=== PATIENT | male | born 1980 | race Caucasian/White ===

== ENCOUNTER 2016-06-07 21:22 | Emergency (ER) | payer MEDICAID, OTHER ==
[2016-06-07] MEDS ORDERED: IOPAMIDOL 370 (76%) 100 ML VIAL IV ONE (21:23)
[2016-06-07] MEDS ORDERED: ONDANSETRON 4 MG/2ML 2 ML VIAL ONE (22:34)
[2016-06-07] MEDS ORDERED: NALBUPHINE HCL 10 MG/ML AMP ONE (22:35)
[2016-06-07 22:46] LABS: ABSOLUTE NEUTROPHIL COUNT 5.8 K/mm3 (1.8-7.7); BASO % 0.3 % (0.2-1.0); EOS # 0.1 (0.0-0.5); EOS % 1.2 % (0.9-2.9); HEMOGLOBIN 13.8 gm/l (14.0-18.0); IMM NEUT% 0.2 % (0-1); LYMPH # 3.6 (1.0-4.8); LYMPH % 34.7 % (15-45); MEAN CELL VOLUME 92.3 fl (80.0-94.0); MEAN CORPUSCULAR HEMOGLOBIN 30.3 pg (27.0-31.0); MEAN CORPUSCULAR HGB CONC 32.9 g/dl (33.0-37.0); MEAN PLATELET VOLUME 8.8 fl (7.4-10.4); MONO # 0.9 (0.0-0.8); MONO % 8.2 % (4-12); NEUT % 55.4 % (43-75); PLATELET COUNT 265 K/mm3 (130-400); RED CELL DISTRIBUTION WIDTH 12.5 % (11.5-14.5)
[2016-06-07 23:25] LABS: ALB/GLOB RATIO 1.1 (>1.0); ALBUMIN 3.3 gm/dL (3.5-5.7); CALCIUM 8.5 mg/dL (8.6-10.3)
[2016-06-07 23:31] LABS: PH,URINE 6.5 (5.0-8.0); SPECIFIC GRAVITY 1.015 (1.001-1.030); URINE BILIRUBIN NEGATIVE (NEGATIVE); URINE BLOOD NEGATIVE (NEGATIVE); URINE GLUCOSE (UA) NEGATIVE (NEGATIVE); URINE LEUKOCYTE ESTERASE NEGATIVE (NEGATIVE); URINE NITRITE NEGATIVE (NEGATIVE); URINE PROTEIN NEGATIVE (NEGATIVE); URINE UROBILINOGEN NORMAL (0-1 mg/dl)
[2016-06-07 23:33] LABS: URINE APPEARANCE CLEAR; URINE COLOR LIGHT YELLOW
[2016-06-08] MEDS ORDERED: NALBUPHINE HCL 10 MG/ML AMP ONE (00:09)
[2016-06-08] MEDS ORDERED: NICOTINE 21 MG PATCH 1 EACH TD ONE (00:27)
--- NOTE | 2016-06-08 07:26 | RAD ---
HAND-RIGHT 3 VIEWS HISTORY: Fall. COMPARISONS: None. FINDINGS: 3 views of the right hand were performed demonstrating normal bony mineralization. The visualized osseous structures appear to remain intact. The alignment is normal. The joint spaces are well-maintained. No focal soft tissue abnormalities are seen. IMPRESSION: 1. Negative views of the right hand.
--- NOTE | 2016-06-08 07:30 | CT ---
C-SPINE W/O CON History: Fall off a ladder. Procedure: 1 mm axial images were obtained through the cervical spine from the base of the skull to T1 with stacked reconstructed 2 mm images photographed in the axial, coronal and sagittal planes. Comparison: None. Findings: The osseous structures are intact without evidence of a discrete fracture. The alignment is normal. No significant subluxation is visualized. The facets align appropriately without evidence of a perched or jumped facet. The spinous processes appear to be intact. No prevertebral soft tissue swelling is observed. The pre-dens space is not widened. The odontoid process is intact. The thyroid gland and the visualized lung apices appear to be normal. There is prominent reversal of the normal cervical lordosis. Spondylosis changes are suggested at C5-6. Impression: 1. Cervical spondylosis changes at C5-6 with reversal of the normal cervical lordosis. 2. No discrete fracture or significant subluxation observed. The findings were called to the emergency room at 2332 hours, 06/07/2016, by [facility].
--- NOTE | 2016-06-08 07:39 | CT ---
Exam Type: ABD/PELVIS W/ CON, CHEST W/ CON Date and Time: 06/07/2016 10:23 PM Clinical information: Fall from a ladder. Comparison: None Procedure: Imaging device: [employer] Aquilion [address] scanner 1 mm axial images were obtained through the chest, abdomen and pelvis. Stacked reconstructed 3, 4 and 5 mm images were photographed in the axial coronal and sagittal planes. No oral contrast was utilized for this examination. 100 ml of Isovue-[id number] was injected intravenously. Exam: with intravenous contrast. FINDINGS: Chest: Thyroid Gland: The thyroid gland appears of normal size with no discrete masses visualized. Mediastinum: A few scattered mediastinal lymph nodes are observed with a pretracheal lymph node observed on image 29 demonstrating a size of 1.7 x 0.8 cm. Hilar structures: The hilar structures are normal with no mass or enlarged adenopathy observed. Heart: The heart size is appropriate. Aorta: The ascending and descending aorta and the aortic arch are unremarkable. No significant asymmetric enlargement is observed. Pericardium: No discrete pericardial abnormalities or evidence of significant fluid is observed. Esophagus: The visualized portions of the esophagus are unremarkable. Central airways: Unremarkable. Lung parenchyma: No gross consolidation, effusion or pneumothorax is present. No focal pulmonary masses are observed. Bibasilar atelectasis is evident. Abdomen/Pelvis: Liver: the liver is homogeneous with no discrete abnormality visualized. No definite findings of biliary dilatation are observed. Spleen: The spleen is homogeneous and does not appear to be enlarged. Gallbladder: Normal without enlargement or evidence of adjacent inflammatory changes. Pancreas: Normal without enlargement or evidence of adjacent inflammatory changes. Adrenal glands: Normal without enlargement or evidence of adjacent inflammatory changes. Abdominal aorta: The aorta is of normal caliber and appears to be without significant atherosclerotic disease. Kidneys: The kidneys appear to be symmetric in size with no perinephric inflammatory changes are identified. No current findings of hydronephrosis are seen. Bowel structures: The visualized bowel is of normal caliber without evidence of dilatation or obstruction. No free fluid or mesenteric inflammatory changes are identified. Appendix: The appendix is well-visualized and appears to be of normal caliber. No periappendiceal inflammatory changes or CT findings of appendicitis are currently observed. Bladder: Mildly distended. Hernia: A fat filled umbilical hernia is noted. Adenopathy: A few scattered mildly prominent retroperitoneal lymph nodes are visualized. Osseous structures: No discrete osseous abnormalities are identified. No discrete fracture is visualized. Pelvic structures: No discrete pelvic abnormalities are visualized in this examination. IMPRESSION: 1. No large organ injury or evidence of a discrete fracture is visualized. 2. Mild the prominent mediastinal and retroperitoneal abdominal adenopathy. 3. A fat filled umbilical hernia. 4. Bibasilar atelectasis. The findings were called to the emergency room at 2332 hours, 06/07/2016, by [facility].
== END 2016-06-08 02:04 | disposition short-term general hospital (02) ==
LOC: ED 21:22
DX: S27.329A Contusion of lung, unspecified, initial encounter (principal); W11.XXXA Fall on and from ladder, initial encounter; S39.92XA Unspecified injury of lower back, initial encounter; I10 Essential (primary) hypertension; F41.9 Anxiety disorder, unspecified; F32.9 Major depressive disorder, single episode, unspecified; F17.210 Nicotine dependence, cigarettes, uncomplicated; Z79.899 Other long term (current) drug therapy; Z91.018 Allergy to other foods
CPT/HCPCS: 85025; 80053; 81003; 73130; 74177; 72125; 71260; 96375; 96376; 99285 ×2; 96374; A9270; J2300 ×2; J2405; Q9967